=== PATIENT | female | born 1970 | race Caucasian/White ===

== ENCOUNTER 2018-11-03 19:37 | Emergency (ER) | payer SELFPAY ==
[~2018-11-03] VITALS: Ht 154.9 cm; Wt 36.4 kg
[2018-11-03 20:11] VITALS: BP 113/65; Ht 154.9 cm; Wt 36.4 kg
== END 2018-11-03 21:54 | disposition home or self-care (01) ==
LOC: D.ER 19:37
DX: R50.9 Fever, unspecified (principal); J02.9 Acute pharyngitis, unspecified; R52 Pain, unspecified; R11.10 Vomiting, unspecified